=== PATIENT | male | born 1960 | race Caucasian/White ===

== ENCOUNTER 2020-05-17 03:37 | Emergency (ER) | payer OTHER ==
[~2020-05-17] VITALS: Ht 190.5 cm; Wt 108.9 kg
[~2020-05-17 03:37] MED LIST: CHLORDIAZEPOXID25 M1 PO; LIBRIUM10 MG PO; NOHOMEMEDICATIONS
[2020-05-17] MEDS ORDERED: TRAZODONE HCL50 MG PO (03:52)
[2020-05-17] MEDS ORDERED: ZESTRIL40 MG PO (03:52)
[2020-05-17] MEDS ORDERED: NORVASC 2.5 MG2.5 M1 PO (03:52)
[2020-05-17] MEDS ORDERED: morphine sulfate PO (04:29)
[2020-05-17] MEDS ORDERED: TRAMADOL 50 MG50 MG PO (04:52)
[2020-05-17] MEDS ORDERED: PREDNISONE 20 M20 MG PO (04:52)
[2020-05-17 04:57] LABS: ABSOLUTE NEUTROPHILS 5.8 thou/uL (1.4-8.2); BASOPHILS 0.8 % (0.0-2.0); EOSINOPHILS 10.5 % (0.0-3.0); HEMATOCRIT 37.1 % (42.0-52.0); HEMOGLOBIN 12.4 gm/dL (14.0-18.0); LYMPHOCYTES 15.1 % (24.0-44.0); MCH 33.8 pg (26.0-34.0); MCHC 33.4 g/dL (28.0-37.0); MCV 101.2 fL (80.0-100.0); MONOCYTES 6.8 % (1.0-8.0); PLATELET COUNT 325 thou/uL (150-400); POLYS 66.8 % (36.0-66.0); RBC 3.67 mil/uL (4.50-6.00); WBC 8.6 thou/uL (4.0-11.0)
[2020-05-17 04:59] LABS: ANION GAP 15 mmol/L (7-16); BUN 16 mg/dL (7-18); CALCIUM 8.6 mg/dL (8.5-10.1); CHLORIDE 105 mmol/L (98-107); CO2 22 mmol/L (21-32); CREATININE 1.2 mg/dL (0.7-1.3); GLUCOSE 90 mg/dL (74-106); POTASSIUM 3.3 mmol/L (3.5-5.1); SODIUM 142 mmol/L (136-145)
[2020-05-17 05:09] LABS: ALBUMIN 3.4 g/dL (3.4-5.0); LIPASE 226 U/L (73-393); SGOT 26 U/L (15-37); SGPT 37 U/L (30-65); TOTAL BILIRUBIN 0.4 mg/dL (0.2-1.0); TOTAL PROTEIN 6.8 g/dL (6.4-8.2); TROPONIN-I <0.06 ng/mL (<0.06)
[2020-05-17 05:39] LABS: URINE BILIRUBIN NEGATIVE (Negative); URINE BLOOD NEGATIVE (Negative); URINE CLARITY CLEAR; URINE COLOR YELLOW; URINE GLUCOSE-RANDOM* NEGATIVE (Negative); URINE KETONES NEGATIVE (Negative); URINE LEUKOCYTES-REFLEX NEGATIVE (Negative); URINE NITRITE-REFLEX NEGATIVE (Negative); URINE PROTEIN (DIPSTICK) NEGATIVE (Negative); URINE SPECIFIC GRAVITY 1.025 (1.005-1.035); URINE UROBILINOGEN 0.2 E.U./dl (0.2-1.0)
[2020-05-17 05:46] LABS: AMP/METHAMP POSITIVE (Negative); BARBITURATES Negative (Negative); BENZODIAZEPINES Negative (Negative); COCAINE Negative (Negative); METHADONE Negative (Negative); OPIATES POSITIVE (Negative); PCP Negative (Negative)
[2020-05-17 06:50] VITALS: BP 126/87
--- NOTE | 2020-05-17 08:34 | EKG ---
[facility] [place] [address] ELECTROCARDIOGRAM REPORT Name: ALPA COSTELLO [facility] [id number] Admission: 05/17/20 Attend Phys: Discharge: 05/17/20 Date of : 64 Report #: [id number] THIS REPORT FOR: cc: Roya Godoy MD, Sharon D. 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1960 Requested By: Huang George Order Number: [id number] MD: Gabe Carballo Measurements Intervals [place] Rate: 87 P: 61 AK: 149 QRS: 30 QRSD: 91 T: 48 QT: 382 QTc: 460 Interpretive Statements Sinus rhythm No significant abnormality Compared to ECG 03/06/2009 06:50:38 Poor R-wave progression no longer present Electronically Signed On 05-17-2020 8:33:57 CDT by Gabe Carballo [email or web address] <ELECTRONICALLY SIGNED> By: Gabe Carballo MD, [facility] 05/17/20 [id number] Gabe Carballo MD, [facility] /EPI
== END 2020-05-17 06:56 | disposition still patient (30) ==
LOC: ER 03:37
PROVIDERS: Emergency Medicine
DX: S30.1XXA Contusion of abdominal wall, initial encounter (principal); M94.0 Chondrocostal junction syndrome [Tietze]; Z79.899 Other long term (current) drug therapy; X50.1XXA Overexertion from prolonged static or awkward postures, initial encounter; Y93.89 Activity, other specified; Y92.89 Other specified places as the place of occurrence of the external cause; Y99.8 Other external cause status